=== PATIENT | female | born 1985 | race Caucasian/White ===

== ENCOUNTER 2019-12-06 11:21 | Emergency (ER) | payer OTHER ==
[~2019-12-06] VITALS: Ht 157.5 cm; Wt 102.5 kg
[2019-12-06 11:38] VITALS: Ht 157.5 cm; Wt 102.5 kg
[2019-12-06 14:57] VITALS: BP 134/92
== END 2019-12-06 14:57 | disposition home or self-care (01) ==
LOC: ED 11:21
DX: J01.90 Acute sinusitis, unspecified (principal)

== ENCOUNTER 2020-09-06 22:18 | Emergency (ER) | payer OTHER ==
[~2020-09-06] VITALS: Ht 160 cm; Wt 103.0 kg
[2020-09-06 22:25] VITALS: Ht 160 cm; Wt 103.0 kg
[2020-09-06 23:24] VITALS: BP 106/48
== END 2020-09-06 23:24 | disposition home or self-care (01) ==
LOC: ED 22:18
DX: K59.00 Constipation, unspecified (principal)
CPT/HCPCS: J1885; Q0092